=== PATIENT | female | born 1955 | race Caucasian/White ===

== ENCOUNTER → 2017-06-10 | Outpatient (REF) | payer OTHER | LOC: M LAB REF 19:37 | PROVIDERS: ATTEND Surgery | DX: C44.629 Squamous cell carcinoma of skin of left upper limb, including shoulder (principal) ==

== ENCOUNTER → 2018-07-05 | Outpatient (REF) | payer OTHER | LOC: M LAB REF 12:32 | DX: C44.729 Squamous cell carcinoma of skin of left lower limb, including hip (principal) ==

== ENCOUNTER 2018-11-10 04:54 | Emergency (ER) | payer OTHER ==
[~2018-11-10] VITALS: Ht 162.6 cm; Wt 68.2 kg
[2018-11-10] MEDS ORDERED: BUPR1TAB53 (05:01)
[2018-11-10] MEDS ORDERED: HYDR12.55 (05:01)
[2018-11-10] MEDS ORDERED: NAPR250T4 PO (05:01)
[2018-11-10] MEDS ORDERED: IRBE150T12 (05:01)
[2018-11-10 05:33] LABS: BASO % 0.6 % (0.0-1.0); EOS % 0.3 % (0.0-3.0); HEMATOCRIT 38.7 % (36.0-47.0); HEMOGLOBIN 13.9 g/dl (12.0-15.5); LYMPH # 0.3 10^3/uL (1.5-4.5); LYMPH % 7.1 % (24.0-44.0); MEAN CORPUSCULAR HEMOGLOBIN 36.6 pg (27.0-33.0); MEAN CORPUSCULAR HGB CONC 35.9 g/dl (32.0-36.5); MEAN CORPUSCULAR VOLUME 101.8 fl (80.0-96.0); MONO # 0.2 10^3/uL (0.0-0.8); MONO % 5.4 % (0.0-5.0); NEUTROPHILS % 85.8 % (36.0-66.0); PLATELET COUNT, AUTOMATED 148 10^3/uL (150-450); WHITE BLOOD COUNT 3.5 10^3/uL (4.0-10.0)
[2018-11-10] MEDS ORDERED: ACETAMINOPHEN TAB 650MG DOSE (2X325MG) As Ordered ONE (05:50)
[2018-11-10] MEDS ORDERED: NS 1,000 ML IV ONE (06:00)
[2018-11-10] MEDS ORDERED: ACETAMINOPHEN TAB 650MG DOSE (2X325MG) PO ONE (06:00)
[2018-11-10 06:02] LABS: BLOOD UREA NITROGEN 8 MG/DL (7-18); CALCIUM LEVEL 8.9 MG/DL (8.8-10.2); CARBON DIOXIDE LEVEL 25 MEQ/L (21-32); CHLORIDE LEVEL 89 MEQ/L (98-107); CPK CREATINE PHOSPHOKINASE 115 U/L (26-192); CREATININE FOR GFR 0.61 MG/DL (0.55-1.30); GLOMERULAR FILTRATION RATE > 60.0 (>45); GLUCOSE, FASTING 106 MG/DL (70-100); MB/CK RELATIVE INDEX 2.52 (< OR =4); POTASSIUM SERUM 4.1 MEQ/L (3.5-5.1); SODIUM LEVEL 125 MEQ/L (136-145); TROPONIN I 0.08 NG/ML (< 0.10)
[2018-11-10 06:21] LABS: INFLUENZA A AMPLIFICATION POSITIVE (NEGATIVE); INFLUENZA B AMPLIFICATION NEGATIVE (NEGATIVE)
[2018-11-10] MEDS ORDERED: OSEL75CA PO (06:41)
[2018-11-10] MEDS ORDERED: OSELTAMIVIR PHOSPHATE 75 MG CAP (TAMIFLU) PO ONE (06:45)
[2018-11-10] MEDS ORDERED: ALBUTEROL 90 MCG/ACT 8GM HFA INHALER INH ONE (06:45)
[2018-11-10 06:46] VITALS: BP 145/63
--- NOTE | 2018-11-10 08:10 | REP ---
Clinical: Cough and dyspnea . Comparison: 01/19/2005 . Technique: PA and lateral. Findings: The mediastinum and cardiac silhouette are normal. The lung edward are clear and without acute consolidation, effusion, or pneumothorax. The skeletal structures are intact and normal. Impression: 1. No acute cardiopulmonary process. Electronically Signed by Elmer Tamez MD 11/10/2018 08:02 A
--- NOTE | 2018-11-12 06:37 | ECGEPIP ---
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
== END 2018-11-10 07:30 | disposition home or self-care (01) ==
LOC: M ED 04:54
DX: J09.X2 Influenza due to identified novel influenza A virus with other respiratory manifestations (principal); E87.1 Hypo-osmolality and hyponatremia; I10 Essential (primary) hypertension; Z79.899 Other long term (current) drug therapy; Z87.891 Personal history of nicotine dependence

== ENCOUNTER → 2020-01-31 | Outpatient (REF) | payer OTHER ==
[~2020-01-31] MED LIST: BUPR1TAB53; HYDR12.55; IRBE150T7; NAPR250T4 PO; OSEL75CA PO
[2020-01-31 15:55] LABS: FOLATE 4.9 NG/ML
== END ==
LOC: M LAB REF 12:40
PROVIDERS: ATTEND Family Medicine
DX: R74.0 Nonspecific elevation of levels of transaminase and lactic acid dehydrogenase [LDH] (principal)

== ENCOUNTER → 2020-12-13 | Outpatient (REF) | payer OTHER ==
[~2020-12-13] MED LIST changes: +NAPR-849 PO; -NAPR250T4 PO
[2020-12-16 14:24] LABS: FOLATE 4.6 NG/ML
== END ==
LOC: M LAB REF 11:59
PROVIDERS: ATTEND Family Medicine
DX: D75.89 Other specified diseases of blood and blood-forming organs (principal)

== ENCOUNTER → 2021-06-24 | Outpatient (REF) | payer OTHER ==
[2021-06-24 16:38] LABS: HEMATOCRIT 45.6 % (36.0-47.0); HEMOGLOBIN 15.1 g/dl (12.0-15.5); MEAN CORPUSCULAR HEMOGLOBIN 35.8 pg (27.0-33.0); MEAN CORPUSCULAR HGB CONC 33.1 g/dl (32.0-36.5); MEAN CORPUSCULAR VOLUME 108.1 fl (80.0-96.0); PLATELET COUNT, AUTOMATED 229 10^3/uL (150-450); RED BLOOD COUNT 4.22 10^6/uL (4.00-5.40); WHITE BLOOD COUNT 5.8 10^3/uL (4.0-10.0)
[2021-06-24 17:16] LABS: BASOPHILS 1 % (0-1); LYMPHOCYTES 36 % (16-44); MONOCYTES 6 % (0-5); NEUTROPHILS 57 % (28-66)
[2021-06-24 17:18] LABS: PLATELET ESTIMATE NORMAL (NORMAL)
== END ==
LOC: M LAB REF 16:12
PROVIDERS: ATTEND Family Medicine
DX: R71.8 Other abnormality of red blood cells (principal)

== ENCOUNTER 2023-09-10 06:08 | Day surgery (SDC) | payer MEDICARE, OTHER ==
[~2023-09-10] VITALS: Ht 162.6 cm; Wt 54.7 kg
[~2023-09-10 06:08] MED LIST changes: +ALPR0.25 PO; -BUPR1TAB53; +BUPR1TAB53 PO; -HYDR12.55; +HYDR12.55 PO; -IRBE150T7; +IRBE150T7 PO; +LIDOCAINE W/EPINEPHRINE 1% 20ML VIAL XX ONE; +SODIUM BICARBONATE 8.4% INJ 50MEQ 50ML VIAL XX ONE
[2023-09-10] MEDS ORDERED: BACITRACIN OINTMENT 30GM TUBE As Ordered ONE (07:17)
[2023-09-10 07:57] VITALS: BP 167/84; TEMP 97.2; O2SAT 96
== END 2023-09-10 08:09 | disposition home or self-care (01) ==
LOC: M SDC 06:08
PROVIDERS: ATTEND Orthopaedic Surgery Hand Surgery
DX: M24.542 Contracture, left hand (principal); J45.909 Unspecified asthma, uncomplicated; Z79.899 Other long term (current) drug therapy

== ENCOUNTER → 2023-12-23 | Outpatient (REF) | payer MEDICARE, OTHER ==
[~2023-12-23] MED LIST changes: +IRBE150T27 PO; -IRBE150T7 PO; -LIDOCAINE W/EPINEPHRINE 1% 20ML VIAL XX ONE; -SODIUM BICARBONATE 8.4% INJ 50MEQ 50ML VIAL XX ONE
[2023-12-23 17:03] LABS: CK-MB VALUE MASS < 1.0 NG/ML (<3.6)
[2023-12-23 17:11] LABS: CPK CREATINE PHOSPHOKINASE 34 U/L (34-145); MB/CK RELATIVE INDEX 2.94 (< OR =4)
[2023-12-23 17:44] LABS: RSV AMPLIFICATION NEGATIVE (NEGATIVE)
== END ==
LOC: M LAB REF 16:20
PROVIDERS: ATTEND Nurse Practitioner Family
DX: R06.02 Shortness of breath (principal); J06.9 Acute upper respiratory infection, unspecified

== ENCOUNTER → 2024-06-19 | Outpatient (CLI) | payer MEDICARE, OTHER | LOC: M RAD 13:34 | PROVIDERS: ATTEND Family Medicine | DX: Z12.2 Encounter for screening for malignant neoplasm of respiratory organs (principal); F17.210 Nicotine dependence, cigarettes, uncomplicated ==

== ENCOUNTER → 2025-05-28 | Outpatient (REF) | payer MEDICARE, OTHER ==
[~2025-05-28] MED LIST changes: +BUPR150T15 PO; -BUPR1TAB53 PO
== END ==
LOC: M LAB REF 14:24
PROVIDERS: ATTEND Family Medicine
DX: R74.01 Elevation of levels of liver transaminase levels (principal); R53.83 Other fatigue